=== PATIENT | female | born 2005 | race Caucasian/White ===

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

== ENCOUNTER 2023-05-04 17:14 | Outpatient (CLI) | payer BC, SELFPAY ==
--- NOTE | 2023-05-04 17:21 | XR_ITS ---
WS: [id number] XR elbow RT 2V [id number] REASON FOR EXAM: M25.521 - Pain in right elbow FINDINGS: No joint effusion. No fracture identified. Joint spaces of the right elbow are intact and well preserved. IMPRESSION: No acute abnormality.
== END 2023-05-04 17:15 | disposition home or self-care (01) ==
LOC: RAD 17:19
PROVIDERS: PCP Nurse Practitioner; Visit Provider Nurse Practitioner
DX: M25.521 Pain in right elbow (principal)
CPT/HCPCS: 73070

== ENCOUNTER → 2023-06-29 08:33 | Outpatient (BNVA) | payer BC, SELFPAY | PROVIDERS: PCP Nurse Practitioner; Visit Provider Student in an Organized Health Care Education/Training Program | DX: M25.521 Pain in right elbow (principal); M77.11 Lateral epicondylitis, right elbow | CPT/HCPCS: 73080 ==

== ENCOUNTER 2023-09-29 00:09 | Emergency (ER) | payer BC, SELFPAY ==
[2023-09-29 00:15] VITALS: BP 127/73; PULSE 76; RESP 16; TEMP 35.6; O2SAT 99
--- NOTE | 2023-09-29 00:24 | W.ED.SKABFB ---
HPI - Skin/Abscess/Foreign Bdy General: Chief complaint: Skin/Abscess/Foreign Body Stated complaint: poison garry in eyes swollen Time Seen by Provider: 09/29/23 00:21 History of Present Illness: Patient presents to the ER with complaints of poison savanna rash over her face both arms chest and abdomen. Patient says she is highly allergic to poison savanna and gets this quite frequently. Patient is already tried 25 of Benadryl and 40 of Pepcid earlier today but this did not help and when she woke up tonight he was even worse. Patient says she normally has to get a shot and some pills to make this totally go away. Review of Systems General: Reports: 10 or more systems reviewed and unremarkable except in HPI and below PFSH ED PFSH: Medical History (Updated 09/29/23 @ 00:26 by Juliano Jade DO) Acute anxiety Depression Surgical History H/O knee surgery Family History Mother Family history of PCOS Migraines Scoliosis Other Cancer Diabetes Heart disease Social History Smoking and tobacco/nicotine status: never used tobacco/nicotine Second hand smoke exposure: Yes Adopted: No Highest education level completed: 11th Grade Female Reproductive History: Date of last menstrual period: 09/08/23 Physical Exam Const: COMMON NORMALS: no acute distress, average body habitus, patient oriented x3, no limitations, healthy appearing, alert and well nourished Neck/C-Spine: COMMON NORMALS: no JVD Chest: COMMONS NORMALS: normal palpation of entire chest wall Resp: COMMON NORMALS: normal respiratory effort, No retractions, No use of accessory muscles and clear to auscultation bilaterally AUSCULTATION: clear to auscultation bilaterally Cardio: COMMON NORMALS: no JVD, regular rate, regular rhythm, S1 normal heart sound present, S2 normal heart sound present, No gallops present (Cardio), No clicks present (Cardio), No murmurs present (Cardio) and No rub (Cardio) RATE: regular rate RHYTHM: regular rhythm HEART SOUNDS: S1 normal heart sound present and S2 normal heart sound present GI: COMMON NORMALS: Normal to inspection, nondistended, normoactive bowel sounds present, Soft to palpation, non-tender, No hepatosplenomegaly present and no masses PALPATION: Yes Soft to palpation and Yes No hepatosplenomegaly present Neuro: COMMON NORMALS: patient oriented x3 SENSORIUM/ORIENTATION: Yes alert Skin: NARRATIVE SKIN EXAM: Raised red blotchy streaky type rash on face neck chest abdomen and bilateral arms. Course Vital Signs: Vital signs: Vital Signs Temperature 96.0 F L 09/29/23 00:31 Pulse Rate 76 09/29/23 00:31 Respiratory Rate 16 09/29/23 00:31 Blood Pressure 127/73 09/29/23 00:31 Pulse Oximetry 99 09/29/23 00:31 Oxygen Delivery Me thod Room Air 09/29/23 00:15 MDM - Skin/Abscess/Foreign Bdy Medicial Decision Making Patient was given 10 mg Decadron will be sent home with a prescription for 50 mg of prednisone daily for the next 5 days. Differential Diagnosis Likely contact dermatitis Medical Records I reviewed the patient's medical records. Lab Data I reviewed the patient's lab results. All radiology interpretation(s) finalized by discharge Discharge Plan Discharge Patient Disposition: Home Clinical Impression: Poison savanna dermatitis Condition: Stable Prescriptions: New prednisone 50 mg tablet 50 mg PO DAILY Qty: 5 0RF No Action famotidine 40 mg tablet 40 mg PO BID 10 Days Qty: 20 0RF loratadine [Claritin] 10 mg tablet 10 mg PO DAILY 90 Days Qty: 90 1RF Discharge Orders: Discharge ED (Routine); Ordered 09/29/23 Ordered By: Juliano Jade Referrals: Kiarra Gregory FNP-[facility] [Primary Care Provider] - 1 week Patient Instructions: Poison Savanna (ED) Activity Restrictions/Additional Instructions: You have been given a shot of Decadron 10 mg in the ER and a prescription of prednisone 50 mg 1 pill once a day for the next 5 days sent to your pharmacy. Please continue your Benadryl and famotidine during his time.. Please follow-up with your Doctor as needed. Coding Level of Care Code ED Telecommunications Operator for Elias Aviles
[2023-09-29] MEDS: dexamethasone 10 mg/mL INJ IM (00:28)
[2023-09-29 00:31] VITALS: BP 127/73; PULSE 76; RESP 16; TEMP 35.6; O2SAT 99
== END 2023-09-29 00:37 | disposition home or self-care (01) ==
PROVIDERS: Emergency Provider Emergency Medicine; PCP Nurse Practitioner
DX: L23.7 Allergic contact dermatitis due to plants, except food (principal); Z77.22 Contact with and (suspected) exposure to environmental tobacco smoke (acute) (chronic)
CPT/HCPCS: 96372; 99284; J1100

== ENCOUNTER → 2024-08-17 13:37 | Outpatient (BNVA) | payer BC, SELFPAY | PROVIDERS: PCP Nurse Practitioner; Visit Provider Nurse Practitioner Women's Health | DX: N91.2 Amenorrhea, unspecified (principal); Z32.01 Encounter for pregnancy test, result positive | CPT/HCPCS: 81025; 84702; 86850; 86900 ==

== ENCOUNTER → 2024-09-05 13:14 | Outpatient (BNVA) | payer BC, SELFPAY | PROVIDERS: PCP Nurse Practitioner; Visit Provider Nurse Practitioner Women's Health | DX: Z36.9 Encounter for antenatal screening, unspecified (principal) | CPT/HCPCS: 76801 ==

== ENCOUNTER → 2024-09-21 13:15 | Outpatient (BNVA) | payer BC, SELFPAY | PROVIDERS: PCP Nurse Practitioner; Visit Provider Nurse Practitioner Women's Health | DX: Z34.90 Encounter for supervision of normal pregnancy, unspecified, unspecified trimester (principal) | CPT/HCPCS: 80307; 84315; 84443; 85025; 86592; 86762; 86803; 86850; 86900; 87086; 87340; 87491; 87591; 87661; 87806 ==

== ENCOUNTER → 2024-09-26 09:19 | Outpatient (BNVA) | payer BC, SELFPAY | PROVIDERS: PCP Nurse Practitioner; Visit Provider Nurse Practitioner Women's Health | DX: R79.89 Other specified abnormal findings of blood chemistry (principal) | CPT/HCPCS: 84439; 84481 ==

== ENCOUNTER → 2024-10-09 10:27 | Outpatient (BNVA) | payer BC, SELFPAY | PROVIDERS: PCP Nurse Practitioner; Visit Provider Obstetrics & Gynecology | DX: Z34.90 Encounter for supervision of normal pregnancy, unspecified, unspecified trimester (principal) | CPT/HCPCS: 84315; 87624 ==

== ENCOUNTER → 2024-11-02 14:34 | Outpatient (BNVA) | payer BC, SELFPAY | PROVIDERS: PCP Nurse Practitioner; Visit Provider Nurse Practitioner Women's Health | DX: Z34.90 Encounter for supervision of normal pregnancy, unspecified, unspecified trimester (principal); Z3A.16 16 weeks gestation of pregnancy | CPT/HCPCS: 82105; 82950; 84315; 84439; 84443; 84481 ==

== ENCOUNTER 2024-12-04 16:15 | Outpatient (CLI) | payer BC, SELFPAY ==
--- NOTE | 2024-12-04 16:30 | USR_ITS ---
PROCEDURE INFORMATION: Exam: US After First Trimester, Transabdominal Exam date and time: 12/04/2024 4:34 PM Age: 19 years old Clinical indication: Screening exam; Routine US, uterus; Additional info: Z34.90 - encounter for supervision of normal , u. . . , Ob anatomy scan LABS AND CLINICAL REPORTS: Last menstrual period start date: Unknown Gestational age (Established): 20 w 5 d Estimated due date (Established): 04/18/2025 TECHNIQUE: Imaging protocol: Real-time transabdominal obstetrical ultrasound of the maternal pelvis and a second or third trimester with image documentation. COMPARISON: 1. US OB <= 14 weeks fetus [id number] 09/05/2024 1:20 PM 2. Unable to obtain nose/lips profile views. FINDINGS: Gestation: First trimester sonographic examination. Viable single intrauterine as described. JUNO (AUA) 04/21/2025. heart rate: 137 bpm Last menstrual period start date: Unknown Cervix: Cervical length measures 0 cm. Closed. Gestational age (Established): 20 w 5 d Estimated due date (Established): 04/18/2025 heart rate: 137 bpm Estimated weight: 329.81 g Estimated weight: EFW by AC, BPD, FL, HC, Hadlock 1985 Biparietal diameter (BPD): 4.76 cm Biparietal diameter (BPD): EGA (BPD) is 20 w 3 d Biparietal diameter (BPD): 35.6 % percentile Head circumference (HC): 18.12 cm Head circumference (HC): EGA (HC) is 20 w 4 d Head circumference (HC): 32.6 % percentile Abdominal circumference (AC): 14.71 cm Abdominal circumference (AC): EGA (AC) is 20 w 0 d Abdominal circumference (AC): 21.5 % percentile Femur length (FL): 3.21 cm Femur length (FL): EGA (FL) is 20 w 0 d Femur length (FL): 18.8 % percentile HC/AC: 1.23 HC/AC: (Normal range: 1.07 - 1.25) FL/BPD: 67.44 FL/HC: 17.72 FL/HC: (Normal range: 16.54 - 19.94) FL/AC: 21.82 COMPARISON: US OB <= 14 weeks fetus [id number] 09/05/2024 1:20 PM Unable to obtain nose/lips profile views. BIOMETRY: Gestational age (AUA): 04/21/2025. Estimated due date (AUA): 20 weeks 2 days Estimated weight: 329.81 g. EFW by AC, BPD, FL, HC, Hadlock 1985 Biparietal diameter (BPD): 4.76 cm. EGA (BPD) is 20 w 3 d. 35.6 % percentile Head circumference (HC): 18.12 cm. EGA (HC) is 20 w 4 d. 32.6 % percentile Abdominal circumference (AC): 14.71 cm. EGA (AC) is 20 w 0 d. 21.5 % percentile Femur length (FL): 3.21 cm. EGA (FL) is 20 w 0 d. 18.8 % percentile HC/AC: 1.23. (Normal range: 1.07 - 1.25) FL/HC: 17.72. (Normal range: 16.54 - 19.94) FL/BPD: 67.44 FL/AC: 21.82 MATERNAL: Uterus: Unremarkable. Cervix: Cervical length measures 0 cm. Closed. Right ovary/adnexa: Obscured by lack of adequate acoustic window. Left ovary/adnexa: Obscured by lack of adequate acoustic window. Intraperitoneal space: No intraperitoneal free fluid. US/US OB >= 14 weeks fetus [id number] IMPRESSION: Viable single intrauterine , 20 weeks 2 days. JUNO (AUA) 04/21/2025.
== END 2024-12-04 16:16 | disposition home or self-care (01) ==
LOC: RAD 16:18
PROVIDERS: PCP Nurse Practitioner; Visit Provider Obstetrics & Gynecology
DX: Z34.91 Encounter for supervision of normal pregnancy, unspecified, first trimester (principal)
CPT/HCPCS: 76805

== ENCOUNTER 2024-12-06 21:34 | Outpatient (CLI) | payer BC, SELFPAY ==
[2024-12-06 21:35] VITALS: BMI 23.9
[2024-12-06 21:43] VITALS: BP 129/87; PULSE 79; TEMP 35.8
[2024-12-06 21:58] VITALS: BP 128/69; PULSE 81
[2024-12-06 22:13] VITALS: BP 124/68; PULSE 81
[2024-12-06 22:28] VITALS: BP 121/64; PULSE 76
[2024-12-06 22:29] LABS: Glucose Urine UA Negative (Normal); Nitrate Urine Negative (Negative); Specific Gravity, Urine 1.005 (1.005-1.030)
[2024-12-06 22:45] VITALS: BP 121/64; PULSE 76; RESP 16; O2SAT 100
== END 2024-12-06 22:45 | disposition home or self-care (01) ==
LOC: OPOB 21:34 → OBGYN 21:35
PROVIDERS: PCP Nurse Practitioner; Visit Provider Obstetrics & Gynecology
DX: O26.899 Other specified pregnancy related conditions, unspecified trimester (principal); Z3A.00 Weeks of gestation of pregnancy not specified; R31.9 Hematuria, unspecified
CPT/HCPCS: 81001; 99211

== ENCOUNTER 2025-03-19 16:42 | Outpatient (CLI) | payer BC, SELFPAY ==
--- NOTE | 2025-03-19 16:51 | USR_ITS ---
PROCEDURE INFORMATION: Exam: US , Limited Exam date and time: 03/19/2025 4:54 PM Age: 19 years old Clinical indication: Screening exam; Routine US, uterus; Additional info: Growth, nose lips, profile LABS AND CLINICAL REPORTS: Gestational age (Established): 35 w 5 d Estimated due date (Established): 04/18/2025 TECHNIQUE: Imaging protocol: Real-time ultrasound of the maternal uterus with image documentation. Exam focused on the clinical indication. COMPARISON: US OB >= 14 weeks fetus [id number] 12/04/2024 4:34 PM FINDINGS: Gestation: Single live intrauterine . heart rate: 141 bpm Amniotic fluid index: SUSAN is 10.36 cm. This is normal. Presentation: Cephalic. BIOMETRY: Estimated weight: Estimated weight is 2489 g +/-373 g or 5 lb, 8 oz +/-13 oz. This is at the 23rd percentile. Biparietal diameter (BPD): 8.76 cm. EGA (BPD) is 35 w 3 d. 46.8 % percentile Head circumference (HC): 30.96 cm. EGA (HC) is 34 w 4 d. 4.8 % percentile Abdominal circumference (AC): 30.04 cm. EGA (AC) is 34 w 0 d. 14.3 % percentile Femur length (FL): 6.96 cm. EGA (FL) is 35 w 5 d. 44.3 % percentile HC/AC: 1.03. (Normal range: 0.93 - 1.11) FL/HC: 22.48. (Normal range: 20.1 - 22.3) FL/BPD: 79.45. (Normal range: 71 - 87) FL/AC: 23.17. (Normal range: 20 - 24) MATERNAL: Cervix: Cervical length measures 4.6 cm. profile: The nose, lips, profile, and growth were normal. Placenta: Anterior. US/ OB limited [id number] IMPRESSION: 1. Single live intrauterine as detailed above. Normal growth parameters. 2. Normal cervical length.
== END 2025-03-19 16:43 | disposition home or self-care (01) ==
PROVIDERS: PCP Family Medicine; Visit Provider Family Medicine
DX: R93.89 Abnormal findings on diagnostic imaging of other specified body structures (principal); Z3A.35 35 weeks gestation of pregnancy
CPT/HCPCS: 76815